=== PATIENT | female | born 1985 | race Caucasian/White ===

== ENCOUNTER 2017-03-25 06:55 | Day surgery (SDC) | payer BC ==
[~2017-03-25] VITALS: Ht 167.6 cm; Wt 69.8 kg
[~2017-03-25 06:55] MED LIST: PRENATAL VITAM1 EAC7 PO; WELLBUTRIN XL150 MG PO; XANAX0.25 MG PO
--- NOTE | 2017-03-25 10:40 | NUR ---
03/25/17 1040 Jodee Pedersen 1026 RESP EVEN AND UNLABORED WITH ORAL AIRWAY IN PLACE, PT NONREACTIVE RN DOING CHIN LIFT ON ARRIVAL. ABD HAS FOUR LAP SITES WITH UNBILICAL ONE HAVING SMALL AMOUNT OF DRAINAGE, GAUZE IS PLACED OVER SITE. 1028 CHIN LIFT NO LONGER NEEDED TO MAINTAIN AIRWAY, ORAL AIRWAY STILL IN PLACE.
[2017-03-25] MEDS ORDERED: OXYCODON-ACETA1 EAC2 PO (10:42)
[2017-03-25] MEDS ORDERED: IBUPROFEN600 MG PO (10:42)
[2017-03-25] MEDS ORDERED: MAPAP325 MG PO (10:42)
--- NOTE | 2017-03-25 10:50 | NUR ---
MET WITH PT AND HER KAUR. SHE IS ALERT ORIENTED AND A LITTLE BIT ANXIOUS. SHE MENTIONED THAT WAITING MAKES IT WORSE. SHE SEEMED PREPARED, FEW QUESTIONS. HAD PRAYER WITH PT, WILL CONTINUE TO FOLLOW
--- NOTE | 2017-03-25 11:25 | NUR ---
PT TAKES SIPS OF WATER AND TOLERATES THAT WELL. CRACKERS GIVEN. CALL AGUEDA Topete/IN REACH. SPOUSE @ BS.
--- NOTE | 2017-03-25 12:04 | NUR ---
PT HIS CALL LIGHT. REPORTS PAIN STAYING THE SAME ABOUT A 4 OR 5. PT GIVEN THE OPTION OF MORE PAIN MEDICATION. SHE IS GIVEN ANOTHER PAIN PILL. WILL REASSESS WITHIN THE HOUR.
--- NOTE | 2017-03-25 12:34 | NUR ---
PT REPORTS THAT HER PAIN IS GETTING BETTER AT A TOLERABLE LEVEL OF 3/10. SHE STATES SHE NEEDS TO GET UP AND USE THE RESTROOM. CALL LIGHT WITHIN REACH. NO OTHER C/O'S. WILL REASSESS WITHIN THE HOUR.
--- NOTE | 2017-03-25 13:28 | NUR ---
PT REPORTS THAT HER PAIN IS LESS. SHE WOULD LIKE TO TRY AND GO TO THE BATHROOM AGAIN. CALL LIGHT WITHIN REACH. WILL REASSESS WITHIN THE HOUR.
--- NOTE | 2017-03-25 15:37 | NUR ---
LE 1505: PT GIVEN 4ML OF IV ZOFRAN. EDUCATED THAT WILL WAIT FOR ABOUT 30-45 MINUTES TO MAKE SURE NO MORE NAUSEA BEFORE SENDING HER HOME. SHE IS ALLOWED TO GET DRESSED AND REST BACK IN BED. PT'S HUSBNAD LEAVES TO GO TO THE STORE. 1535: PEEK IN PT'S ROOM AND SHE IS SLEEPING.
--- NOTE | 2017-03-25 17:03 | NUR ---
1640: PT'S NAUSEA IS UNDERS ONCTROL, HE IS ABLE TO KEEP CHICKEN NOODLE SOUP AND CRACKERS DOWN. SHE HAS MET DC CRITERIA AND IS REQUESTNG TO GO HOME. DC INSTRUCTIONS ARE GIVEN VERBALLY. PT AND VERBALIZE UNDERSTANDING AND ARE GIVEN THE OPPORTUNITY TO ASK QUESTIONS WHICH WERE ANSWERED.
--- NOTE | 2017-03-26 08:41 | OR ---
[facility] [address], [place] [address] Signed DATE OF OPERATION: 03/25/2017 SURGEON: Katalina Dennison MD PREOPERATIVE DIAGNOSIS: Chronic acalculous cholecystitis. 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 PROCEDURES: 1. Laparoscopic cholecystectomy with intraoperative cholangiogram. 2. Surgeon-directed fluoroscopy. ANESTHESIA: General endotracheal, Katalina Juan CRNA and local 20 mL of 0.25% Marcaine without epinephrine. INDICATION: This 31-year-old white woman has been recently bothered by recurrent right subcostal pain following fatty food intake. She has long-standing been thought to have "irritable bowel syndrome." She had a very severe attack about 2 weeks ago of similar right subcostal pain. She does have family history of biliary disease in a mother and grandmother, both have undergone cholecystectomy. A gallbladder ultrasound was performed under the direction of ROSE Jaquez, which showed sludge and material within the gallbladder, highly consistent with biliary disease. She is admitted at this time to undergo cholecystectomy preferred by laparoscopic approach understanding the risks of bleeding, infection, failure to cure the problem, need for open procedure and other unforeseen complications including common duct injury. Understanding these risks, she wished to proceed. FINDINGS: The gallbladder was chronically inflamed. Transillumination did confirm cholesterolosis and when the gallbladder was opened profound cholesterolosis consistent with strawberry gallbladder. Cholangiogram was normal. The cystic duct was somewhat funnel-shaped and careful and meticulous dissection allowed for good definition of it in relation to the common duct. An Endoloop was applied to the cystic duct in addition to the 2 clips for security of the closure. The liver itself was otherwise normal. There were no other findings of concern. Electronically Signed By: KATALINA DENNIOSN MD 03/26/17 0841 PATIENT NAME: CAMRYN SHAFFER OPERATIVE REPORT DATE OF : 85 PHYSICIAN: KATALINA DENNISON MD REPORT #: [id number] REPORT IS CONFIDENTIAL AND NOT TO BE RELEASED WITHOUT AUTHORIZATION [facility] [address], [place] [address] Signed DESCRIPTION OF PROCEDURE: The patient was brought to the operating room and given a general endotracheal anesthetic. Preoperative antibiotic Ancef was given and sequential compression device stockings used and heparin subcutaneously administered. The abdomen was prepared with chlorhexidine solution and draped sterilely. An infraumbilical incision was made and using an open Sage cannula technique, pneumoperitoneum was achieved to a level of 14 mmHg of carbon dioxide gas. Intraabdominal inspection showed no sign of ascites or carcinomatosis. The gallbladder appeared chronically inflamed. The liver was normal. Three additional trocars were placed in usual configuration in the subxiphoid, right midclavicular, and right anterior axillary line. Gallbladder was elevated cephalad and retracted laterally. There were essentially no adhesions of the gallbladder. Given her relatively thin body habitus, one could easily see the infundibulum of the gallbladder, but it was tucked between the lobes of the liver more deeply than usual. The gallbladder was retracted laterally and using blunt dissection high in the infundibulum, dissection was carried down the infundibulum of the gallbladder ultimately freeing it from the plate of the hepatic bed. The gallbladder had a funnel-type shape and it was dissected free more fully down to more normal-appearing cystic duct. A clip was applied high in the infundibulum and a transverse choledochotomy made in the cystic duct. Egress of clear bile was noted upon retrograde milking of the cystic duct. Using an Hernandez-type cholangiocatheter, intraoperative cholangiography was undertaken. Several different views with different perspectives were undertaken to more fully see the cystic duct in relation to the common bile duct and so on. Once satisfied of the anatomy, the catheter was removed and the cystic duct was doubly clipped and divided, and then a PDS Endoloop applied to the cystic duct as well. Photographs were taken. The gallbladder was then dissected free in a retrograde fashion using electrocautery. Gallbladder was extracted through the infraumbilical port site without problem, opened on the back table and found to have profound cholesterolosis, but no sign of stones. Irrigation was undertaken in the subhepatic space, no sign of bile leak, bleeding, or other problems. The trocars were removed under direct visualization. A small amount of bleeding in this 5 mm ports on the right side were secured with electrocautery until good hemostasis. Excess irrigation fluid was suctioned free and all the ports were finally removed. Attention was turned towards the closure. The infraumbilical fascial incision was reapproximated with interrupted 0 Vicryl suture. A 20 mL of 0.25% Marcaine without epinephrine was injected in the trocar sites. Steri-Strips were applied to the trocar sites and she was ultimately extubated and transferred to recovery room in good condition having suffered no complications. Sponge, needle, and instrument counts reported as correct x3. Electronically Signed By: KATALINA DENNISON MD 03/26/17 0841 PATIENT NAME: CAMRYN SHAFFER HOLLIS OPERATIVE REPORT DATE OF : 85 PHYSICIAN: KATALINA DENNISON MD REPORT #: [id number] REPORT IS CONFIDENTIAL AND NOT TO BE RELEASED WITHOUT AUTHORIZATION [facility] [address] [place], [place] [address] Signed MD ELDA Villarreal/TORSTEN /[id number] cc: ROSE Jaquez Electronically Signed By: KATALINA DENNISON MD 03/26/17 0841 PATIENT NAME: EDMUNDCAMRYN HOLLIS OPERATIVE REPORT DATE OF : 85 PHYSICIAN: KATALINA DENNISON MD REPORT #: [id number] REPORT IS CONFIDENTIAL AND NOT TO BE RELEASED WITHOUT AUTHORIZATION
== END 2017-03-25 16:50 | disposition home or self-care (01) ==
LOC: DS 06:55
PROVIDERS: Surgery
PROC: BF13YZZ Fluoroscopy of Gallbladder and Bile Ducts using Other Contrast (ICD-10-PCS; 2017-03-25)
PROC: 0FT44ZZ Resection of Gallbladder, Percutaneous Endoscopic Approach (ICD-10-PCS; principal; 2017-03-25 08:45)
DX: K81.1 Chronic cholecystitis (principal); F41.9 Anxiety disorder, unspecified; F32.9 Major depressive disorder, single episode, unspecified; K21.9 Gastro-esophageal reflux disease without esophagitis; Z88.0 Allergy status to penicillin; Z98.890 Other specified postprocedural states; Z79.899 Other long term (current) drug therapy
CPT/HCPCS: 00790; 74300; J0330; J1100; J1644; J1885; J2250; J2405; J2704; J2710; J2765; J3010; J7120; Q9967

== ENCOUNTER 2023-10-18 14:01 | Emergency (ER) | payer BC ==
[~2023-10-18] VITALS: Ht 167.6 cm; Wt 70.0 kg
[~2023-10-18 14:01] MED LIST changes: +IBUPROFEN600 MG PO; +MAPAP325 MG PO; +OXYCODON-ACETA1 EAC2 PO
[2023-10-18] MEDS ORDERED: KETOROLAC TROMETHAMINE 60 MG/2 ML VIAL IM ONE (14:15)
[2023-10-18] MEDS ORDERED: KETOROLAC TROME10 MG PO (15:22)
[2023-10-18 15:27] VITALS: BP 121/81
== END 2023-10-18 15:27 | disposition home or self-care (01) ==
LOC: ED 14:01
DX: S76.911A Strain of unspecified muscles, fascia and tendons at thigh level, right thigh, initial encounter (principal); X58.XXXA Exposure to other specified factors, initial encounter; Z88.0 Allergy status to penicillin; Z88.1 Allergy status to other antibiotic agents
CPT/HCPCS: 73502; 96372; 99283-25; J1885